=== PATIENT | female | born 1990 | race African-American/Black ===

== ENCOUNTER 2021-02-03 13:32 | Emergency (ER) | payer SELFPAY ==
[~2021-02-03] VITALS: Ht 170.1 cm; Wt 63.5 kg
[2021-02-03 14:20] LABS: CLARITY,URINE CLEAR; COLOR,URINE YELLOW; GLUCOSE, URINE (UA) NEGATIVE (NEGATIVE); KETONES,URINE NEGATIVE (NEGATIVE); LEUKOCYTE ESTERASE ,URINE 1+ (NEGATIVE); NITRITE,URINE POSITIVE (NEGATIVE); PROTEIN,URINE 3+ (NEGATIVE)
[2021-02-03 14:36] LABS: BILIRUBIN,URINE 1+ (NEGATIVE)
[2021-02-03 14:37] LABS: BACTERIA,URINE MODERATE /HPF; RBC,URINE TNTC /HPF; WBC,URINE 50-100 /HPF
--- NOTE | 2021-02-03 14:47 | ED GU-Female ---
General Chief Complaint: - Urinary Stated Complaint: PAINFUL URINATION, BLOODY URINATION Nursing Triage Note: Pt arrival at ER with complaint of Dysuria, Hematuria x3 days. Pt states that it hurts in her "crotch area" and feels better when there is pressure on it. Pain rated at a 8/10. Nursing Sepsis Screen: No Definite Risk Source: patient Exam Limitations: no limitations (RAD MORROW MED STUDENT) History of Present Illness Date Seen by Provider: Feb 03, 2021 Time Seen by Provider: 13:55 Initial Comments Pt is a 30yo female with no PMH who presents today with dysuria and hematuria. She states she has been straining to urinate for 3 days and has also noticed blood. LMP was about 2 weeks ago. she initially thought the blood was from her menstrual cycle being off but when she used a tampon there was no blood on it. Her and her girlfriend drank alcohol last night, and she woke up this morning with increased the constant urge to urinate, urinary frequency, increased pain and new pain in the suprapubic area. She reports holding pressure on her urethral area relieves the pain and that walking and pressure from her pant on her suprapubic area make it worse. Pain currently 8-9/10. Denies fever, chills, chest pain, SOB, n/v, discharge or abnormal smells. She did switch to using a ne w, scented body-wash recently, but denies any rashes or skin changes in her genital region. Does not think she is as she only sleeps with women, is in a relationship currently. Timing/Duration: this morning Severity/Quality: moderate Location: suprapubic, urethral Radiation: none Prior Genitourinary Problems: none Sexual [place] History: single partner Modifying Factors: Improves With Movement, Improves With Palpation, Improves With Urinating Associated Symptoms: dysuria, urinary frequency (RAD MORROW MED STUDENT) Allergies and Home Medications Allergies Coded Allergies: No Known Drug Allergies (Unverified , 02/03/21) Home Medications Cephalexin 500 Mg Tablet, 500 MG PO TID Prescribed by: CECE AYALA on 02/03/21 1510 Phenazopyridine HCl 200 Mg Tablet, 1 TAB PO TID PRN for PAIN-MILD (1-4) Prescribed by: CECE AYALA on 02/03/21 1510 Review of Systems Review of Systems Constitutional: No chills, No fever EENTM: no symptoms reported Respiratory: No cough, No short of breath Cardiovascular: No chest pain, No edema Gastrointestinal: abdominal pain (suprapubic); No constipation, No diarrhea, No nausea, No vomiting Genitourinary: denies discharge; dysuria, frequency, hematuria, pain, urgency Musculoskeletal: No back pain, No joint pain Skin: No change in color, No lesions, No rash Psychiatric/Neurological: No Symptoms Reported Endocrine: No Symptoms Reported Hematologic/Lymphatic: No Symptoms Reported (RAD MORROW MED STUDENT) Past Anlsfkp-Nojzyg-Mdqzkk Hx Patient Social History Alcohol Use: Regular Use Alcohol Beverage of Choice: Beer Smoking Status: Current Everyday Smoker Type Used: Cigarettes Recent Infectious Disease Expo: No Recent Hopitalizations: No (RAD MORROW MED STUDENT) Immunizations Up To Date Tetanus Booster (TDap): Less than 5yrs PED Vaccines UTD: No (RAD MORROW MED STUDENT) Seasonal Allergies Seasonal Allergies: No (RAD MORROW MED STUDENT) Past Medical History Surgeries: No Respiratory: No Cardiac: No Neurological: No Last Menstrual Period: Jan 19, 2021 Genitourinary: No Gastrointestinal: No Musculoskeletal: No Endocrine: No HEENT: No Cancer: No Psychosocial: No Integumentary: No Blood Disorders: No (RAD MORROW MED STUDENT) Physical Exam Vital Signs Vital Signs - First Documented 02/03/21 13:52 Temp 36.6 Pulse 90 Resp 18 B/P (MAP) 145/98 (114) Pulse Ox 98 O2 Delivery Room Air (CECE NUNEZ MD) Vital Signs Capillary Refill : Less Than 3 Seconds (RAD MORROW MED STUDENT) Height, Weight, BMI Height: '" Weight: lbs. oz. kg; 21.00 BMI Method: General Appearance: WD/WN, no apparent distress HEENT: PERRL/EOMI Neck: full range of motion, supple Cardiovascular: regular rate, rhythm, no edema, no murmur Respiratory: lungs clear, no respiratory distress Gastrointestinal: normal bowel sounds, soft, tenderness (suprapubic with deep palpation) Extremities: normal range of motion, non-tender, no pedal edema, no calf tenderness, normal capillary refill Neurologic/Psychiatric: no motor/sensory deficits, alert, normal mood/affect, oriented x 3 Skin: normal color, warm/dry (RAD MORROWMED STUDENT) Progress/Results/Core Measures Suspected Sepsis Recent Fever Within 48 Hours: No Infection Criteria Present: None New/Unexplained Altered Menta: No Sepsis Screen: No Definite Risk SIRS Temperature: Pulse: 90 Respiratory Rate: 18 Blood Pressure 145 /98 Mean: 114 (RAD MORROW MED STUDENT) Results/Orders Lab Results Laboratory Tests Test 02/03/21 14:05 Range/Units Urine Color YELLOW Urine Clarity CLEAR Urine pH 6.0 5-9 Urine Specific [place] >=1.030 1.016-1.022 Urine Protein 3+ H NEGATIVE Urine Glucose (UA) NEGATIVE NEGATIVE Urine Ketones NEGATIVE NEGATIVE Urine Nitrite POSITIVE H NEGATIVE Urine Bilirubin 1+ H NEGATIVE Urine Urobilinogen 1.0 < = 1.0 MG/DL Urine Leukocyte Esterase 1+ H NEGATIVE Urine RBC (Auto) 3+ H NEGATIVE Urine RBC TNTC H /HPF Urine WBC 50-100 H /HPF Urine Squamous Epithelial Cells 2-5 /HPF Urine Crystals NONE /LPF Urine Bacteria MODERATE H /HPF Urine Casts NONE /LPF Urine Mucus NEGATIVE /LPF Urine Culture Indicated YES (CECE NUNEZ MD) My Orders Orders - CECE NUNEZ MD Ceftriaxone For Im Use (Rocephin For Im (02/03/21 15:15) Lidocaine 1% Inj 20 Ml (Xylocaine 1% Inj (02/03/21 15:15) (CECE NUNEZ MD) Medications Given in ED Current Medications Medications Dose Ordered Sig/Kristi Route Start Time Stop Time Status Last Admin Dose Admin Ceftriaxone Sodium 1,000 mg ONCE ONCE IM 02/03/21 15:15 02/03/21 15:16 DC 02/03/21 15:14 1,000 MG Lidocaine HCl 2.1 ml ONCE ONCE INJ 02/03/21 15:15 02/03/21 15:16 DC 02/03/21 15:14 2.1 ML (CECE NUNEZ MD) Vital Signs/I&O 02/03/21 13:52 Temp 36.6 Pulse 90 Resp 18 B/P (MAP) 145/98 (114) Pulse Ox 98 O2 Delivery Room Air (CECE NUNEZ MD) Vital Signs/I&O Capillary Refill : Less Than 3 Seconds (RAD MORROW MED STUDENT) Blood Pressure Mean: 114 Departure Impression Primary Impression: Urinary tract infection Qualified Codes: N39.0 - Urinary tract infection, site not specified; R31.9 - Hematuria, unspecified Additional Impression: Bladder spasm Disposition: HOME, SELF-CARE Condition: Improved Departure-Patient Inst. Decision time for Depature: 15:00 (CECE NUNEZ MD) Referrals: NO,LOCAL PHYSICIAN (PCP/Family) Primary Care Physician Patient Instructions: Blood in the Urine (Hematuria) in Adults, Urinary Tract Infection, Adult (DC) Add. Discharge Instructions: Complete your antibiotic as prescribed. You may use Pyridium as prescribed to help numb the urinary tract. This medication may cause the urine to be a reddish or orange color. There was blood in your urine. This may be due to infection. However, blood in the urine may also be caused by serious conditions such as bladder or kidney cancer. You should follow-up with a primary care provider soon as possible and have a repeat urine study performed after you complete urinary tract infection treatment. Drink lots of clear liquids to help flush out your urinary tract. Call with questions or concerns. Return to the emergency room if you have worsening symptoms. All discharge instructions reviewed with patient and/or family. Voiced understanding. Scripts Cephalexin (Cephalexin) 500 Mg Tablet 500 MG PO TID, #20 TAB Prov: CECE NUNEZ MD 02/03/21 Phenazopyridine HCl (Pyridium) 200 Mg Tablet 1 TAB PO TID PRN for PAIN-MILD (1-4), #10 TAB Prov: CECE NUNEZ MD 02/03/21 Work/School Note: Work Release Form Date Seen in the Emergency Department: Feb 03, 2021 Return to Work: Feb 04, 2021 Restrictions: No Restrictions RAD MORROW MED STUDENT Feb 03, 2021 14:47 CECE NUNEZ MD Feb 03, 2021 15:10
[2021-02-03] MEDS ORDERED: PHEN-640 PO (15:10)
[2021-02-03] MEDS ORDERED: CEPH500T PO (15:10)
[2021-02-03] MEDS ORDERED: LIDOCAINE 1% INJ 20 ML 20 ML VIAL INJ ONE (15:15)
[2021-02-03] MEDS ORDERED: cefTRIAXone 1,000 MG/2.86 ml vial (IM ONLY) IM ONE (15:15)
[2021-02-03 15:24] VITALS: BP 142/101
== END 2021-02-03 15:24 | disposition home or self-care (01) ==
LOC: ER 13:35
DX: N39.0 Urinary tract infection, site not specified (principal); N32.89 Other specified disorders of bladder; I10 Essential (primary) hypertension; F17.210 Nicotine dependence, cigarettes, uncomplicated
CPT/HCPCS: 81000; 84703; 87077; 87088; 99284

== ENCOUNTER 2022-10-05 09:46 | Emergency (ER) | payer SELFPAY ==
[~2022-10-05] VITALS: Ht 167 cm; Wt 64.0 kg
[~2022-10-05 09:46] MED LIST: CEPH500T PO; PHEN-640 PO
--- NOTE | 2022-10-05 11:33 | ED Upper Extremity ---
General Chief Complaint: Trauma POV Arrival Activation Stated Complaint: LT ARM PAIN Nursing Triage Note: ARRIVED VIA AMB TO FAST TRACK. STATES SHE FELL YESTERDAY HURTING HER LEFT ARM/SHOULDER. NOTIFIED OF BUSY ER WITH POSSIBLE LONG WAIT TIME. (JEN BURGOS) History of Present Illness Date Seen by Provider: Oct 05, 2022 Time Seen by Provider: 11:15 Initial Comments 32 year old female reports losing her balance last night, falling to the ground and injuring her left shoulder/forearm. She reports prior left clavicle fracture, no other injuries to Left UE. She has not taken any pain medications and denies the need. Rates pain 05/01. Onset: yesterday Severity: moderate Pain/Injury Location: left shoulder, left forearm Method of Injury: fell (JEN BURGOS) Allergies and Home Medications Allergies Coded Allergies: No Known Drug Allergies (Unverified , 02/03/21) Patient Home Medication List Home Medication List Reviewed: Yes (JEN BURGOS) Cephalexin (Cephalexin) 500 Mg Tablet, 500 MG PO TID Prescribed by: CECE AYALA on 02/03/21 1510 Phenazopyridine HCl (Pyridium) 200 Mg Tablet, 1 TAB PO TID PRN for PAIN-MILD (1- 4) Prescribed by: CECE AYALA on 02/03/21 1510 Review of Systems Constitutional: no symptoms reported, see HPI : No (patient reports in relationship with female partner) Musculoskeletal: see HPI, joint pain (left shoulder and forearm), muscle pain (JEN BURGOS) All Other Systems Reviewed Negative Unless Noted: Yes (JEN BURGOS) Past Kdqzwjq-Rsibex-Rahedd Hx Patient Social History Tobacco Use?: No Substance use?: No Alcohol Use?: Yes Alcohol Frequency: Once in a while (JEN BURGOS) Immunizations Up To Date Tetanus Booster (TDap): Less than 5yrs PED Vaccines UTD: No (JEN BURGOS) Seasonal Allergies Seasonal Allergies: No (JEN BURGOS) Past Medical History Surgeries: No Respiratory: No Cardiac: No Neurological: No Genitourinary: No Gastrointestinal: No Musculoskeletal: No Endocrine: No HEENT: No Cancer: No Psychosocial: No Integumentary: No Blood Disorders: No (JEN BURGOS) Family Medical History Reviewed Nursing Family Hx (LORETTAJEN GARY) Physical Exam Vital Signs Vital Signs - First Documented 10/05/22 09:50 Temp 36.1 Pulse 91 Resp 16 B/P (MAP) 152/100 (117) Pulse Ox 100 O2 Delivery Room Air (CECE NUNEZ MD) Vital Signs Capillary Refill : Less Than 3 Seconds (JEN BURGOS COOKIE) Height, Weight, BMI Height: '" Weight: lbs. oz. kg; 22.00 BMI Method: General Appearance: WD/WN, no apparent distress Cardiovascular: normal peripheral pulses, regular rate, rhythm Respiratory: chest non-tender, lungs clear, normal breath sounds Shoulder: normal inspection, bone tenderness; No deformity; limited ROM, pain, soft tissue tenderness Elbow/Forearm: normal inspection, normal ROM, Left, soft tissue tenderness Neurologic/Psychiatric: no motor/sensory deficits, alert, normal mood/affect, oriented x 3 Skin: normal color, warm/dry (LORETTAJEN GARY) Progress/Results/Core Measures Results/Orders Blood Pressure Mean: 117 Diagnostic Imaging Diagonstic Imaging: Xray Plain Films/CT/US/NM/MRI: other (shoulder) Comments NAME: JOSE JACKSON [facility] REC#: [id number] PT STATUS: REG ER : 1990 PHYSICIAN: JEN BURGOS ADMIT DATE: 10/05/22/ER Draft Date of Exam:10/05/22 SHOULDER, LEFT, 3 VIEWS EXAMINATION: Shoulder radiographs, 3 views. COMPARISON: None. HISTORY: 32-year-old female, fall. Left shoulder pain. FINDINGS: Normal joint space. Negative for fracture. Unremarkable soft tissues. IMPRESSION: Unremarkable radiographs of the left shoulder. Dictated on workstation # [id number] Dict: 10/05/22 1147 Trans: 10/05/[address] [place] [address] [phone] Interpreted by: JOCELYN HALE MD Electronically signed by: Reviewed: Reviewed by Me Diagonstic Imaging: Xray Plain Films/CT/US/NM/MRI: forearm Comments NAME: JOSE JACKSON [facility] REC#: [id number] PT STATUS: REG ER : 1990 PHYSICIAN: JEN BURGOS ADMIT DATE: 10/05/22/ER Signed Date of Exam:10/05/22 FOREARM, LEFT, 2 VIEWS EXAMINATION: Left forearm radiograph. EXAM DATE: 10/05/2022 11:44 AM. COMPARISON: None available. HISTORY: Forearm pain. TECHNIQUE: 2 views. FINDINGS: There is no acute fracture, dislocation, or destructive osseous process. The joint spaces are normal. The soft tissues are normal. IMPRESSION: No acute osseous abnormality. Dictated by: Dictated on workstation # [id number] Dict: 10/05/22 1151 Trans: 10/05/22 1154 [phone] Interpreted by: KOJO STAUFFER DO Electronically signed by: KOJO STAUFFER DO 10/05/22 1154 Reviewed: Reviewed by Me (JEN BURGOS) Departure Impression Primary Impression: Fall Qualified Codes: W19.XXXA - Unspecified fall, initial encounter Additional Impression: Contusion of left arm Qualified Codes: S40.022A - Contusion of left upper arm, initial encounter Disposition: 01 HOME, SELF-CARE Condition: Improved Departure-Patient Inst. Decision time for Depature: 12:05 (JEN BURGOS) Referrals: [facility],LOCAL PHYSICIAN (PCP) Primary Care Physician Patient Instructions: Shoulder Pain (DC) Add. Discharge Instructions: Ice to left shoulder 20 minutes every 2 hours while awake. You may alternate between Tylenol 650 mg and ibuprofen 600 mg every 4 hours for pain. Activity as tolerated with left upper extremity. Establish care with a primary care provider. Return to the emergency department for new, urgent healthcare needs. All discharge instructions reviewed with patient and/or family. Voiced understanding. ATTENDING PHYSICIAN NOTE: I was physically present as attending physician in the emergency department during the care of this patient, but I was not directly involved in the decision making or delivery of care for this patient. (CECE NUNEZ MD) JEN BURGOS Oct 05, 2022 11:33 CECE NUNEZ MD Oct 06, 2022 08:52
--- NOTE | 2022-10-05 11:54 | Diagnostic Imaging Report ---
EXAMINATION: Left forearm radiograph. EXAM DATE: 10/05/2022 11:44 AM. COMPARISON: None available. HISTORY: Forearm pain. TECHNIQUE: 2 views. FINDINGS: There is no acute fracture, dislocation, or destructive osseous process. The joint spaces are normal. The soft tissues are normal. IMPRESSION: No acute osseous abnormality. Dictated by: Dictated on workstation # [id number]
--- NOTE | 2022-10-05 12:00 | Diagnostic Imaging Report ---
EXAMINATION: Shoulder radiographs, 3 views. COMPARISON: None. HISTORY: 32-year-old female, fall. Left shoulder pain. FINDINGS: Normal joint space. Negative for fracture. Unremarkable soft tissues. IMPRESSION: Unremarkable radiographs of the left shoulder. Dictated by: Dictated on workstation # [id number]
[2022-10-05 12:27] VITALS: BP 147/94
== END 2022-10-05 12:28 | disposition home or self-care (01) ==
LOC: EDUNIT# 09:46 → ER 09:50
DX: S50.12XA Contusion of left forearm, initial encounter (principal); Z28.310 Unvaccinated for COVID-19; W01.0XXA Fall on same level from slipping, tripping and stumbling without subsequent striking against object, initial encounter
CPT/HCPCS: 73030; 73090

== ENCOUNTER 2023-07-02 10:36 | Emergency (ER) | payer SELFPAY ==
[~2023-07-02] VITALS: Ht 167 cm; Wt 67.1 kg
--- NOTE | 2023-07-02 11:14 | ED Upper Extremity ---
General Chief Complaint: Upper Extremity Stated Complaint: INJ RIGHT ARM Nursing Triage Note: pt presents to ed via pov from home with complaints of r arm pain after injuring it monday when she slipped on a slick floor. Source: patient Exam Limitations: no limitations History of Present Illness Date Seen by Provider: Jul 02, 2023 Time Seen by Provider: 10:59 Initial Comments 33-year-old female presents to the ER with complaint of right upper arm and right shoulder pain after a fall which occurred on 06/30/2023. She states she landed on her right side. She was complaining of left hip/thigh pain, but states that this pain has dissipated. She also reports a sharp shooting pain in her chest that radiates to her right arm when she moves her right arm. Patient reports that she broke her collarbone on her right side many years ago. She has not taken any pain medications today. Allergies and Home Medications Allergies Coded Allergies: No Known Drug Allergies (Unverified , 02/03/21) Patient Home Medication List Home Medication List Reviewed: Yes Cephalexin (Cephalexin) 500 Mg Tablet, 500 MG PO TID Prescribed by: CECE AYALA on 02/03/21 1510 Phenazopyridine HCl (Pyridium) 200 Mg Tablet, 1 TAB PO TID PRN for PAIN-MILD (1- 4) Prescribed by: CECE AYALA on 02/03/21 1510 Review of Systems Constitutional: see HPI Musculoskeletal: see HPI Past Ozubsii-Cqqdtf-Jlwyto Hx Patient Social History Tobacco Use?: Yes Tobacco type used: Cigarettes Smoking Status: Current Someday Smoker Substance use?: No Alcohol Use?: Yes Alcohol Frequency: Once in a while Pt feels they are or have been: No Immunizations Up To Date Tetanus Booster (TDap): Less than 5yrs PED Vaccines UTD: No Seasonal Allergies Seasonal Allergies: No Past Medical History Surgeries: No Respiratory: No Cardiac: No Neurological: No Genitourinary: No Gastrointestinal: No Musculoskeletal: No Endocrine: No HEENT: No Cancer: No Psychosocial: No Integumentary: No Blood Disorders: No Physical Exam Vital Signs Vital Signs - First Documented 07/02/23 10:48 Temp 36.2 Pulse 94 Resp 16 B/P (MAP) 134/90 (105) Pulse Ox 100 Capillary Refill : Less Than 3 Seconds Height, Weight, BMI Height: '" Weight: lbs. oz. kg; 24.00 BMI Method: General Appearance: WD/WN, no apparent distress Neck: supple, normal inspection Cardiovascular: regular rate, rhythm Respiratory: lungs clear, normal breath sounds, no respiratory distress, no accessory muscle use, other (Chest is tender to palpation) Shoulder: no evidence of injury, bone tenderness, limited ROM, pain, soft tissue tenderness Elbow/Forearm: normal inspection, non-tender, no evidence of injury, normal ROM, Right Neurologic/Psychiatric: alert, normal mood/affect Skin: normal color, warm/dry Progress/Results/Core Measures Results/Orders My Orders Orders - JONNY WILLOUGHBY APRN Shoulder, Right, 3 Views (07/02/23 11:07) Humerus, Right, 2 Views (07/02/23 11:07) Ibuprofen Tablet (Ibuprofen Tablet) (07/02/23 11:15) Medications Given in ED Current Medications Medications Dose Ordered Sig/Kristi Route Start Time Stop Time Status Last Admin Dose Admin Ibuprofen 800 mg ONCE ONCE PO 07/02/23 11:15 07/02/23 11:16 DC 07/02/23 11:23 800 MG Vital Signs/I&O 07/02/23 07/02/23 10:48 11:59 Temp 36.2 36.2 Pulse 94 94 Resp 16 16 B/P (MAP) 134/90 (105) 134/90 Pulse Ox 100 100 Blood Pressure Mean: 105 Progress Progress Note : Progress Note Patient seen and evaluated, resting comfortably in recliner, no acute distress. Based on exam and symptoms, x-ray of right shoulder and right humerus ordered. Ibuprofen ordered. Chest is tender to palpation, chest pain only occurs with movement of right arm, I do not think that chest pain is cardiac. Chest pain appears to be musculoskeletal. Consider cardiac work-up including EKG, tr oponin, chest x-ray, but deferred because pain is likely musculoskeletal. 1150 imaging reviewed. Shoulder x-ray shows no acute abnormality. Humerus x-ray shows no acute bony abnormality. Results discussed with patient. Patient instructed to follow-up with primary care provider. Discharge instructions and return precautions provided. Diagnostic Imaging Diagonstic Imaging: Xray Plain Films/CT/US/NM/MRI: other (shoulder) Comments [facility] [place] NAME: MATT JACKSON [facility] REC#: [id number] PT STATUS: [facility] ER : 1990 PHYSICIAN: JONNY WILLOUGHBY APRN ADMIT DATE: 07/02/23/ER Signed Date of Exam:07/02/23 SHOULDER, RIGHT, 3 VIEWS INDICATION: Right shoulder pain. COMPARISON: None. DISCUSSION: Three views of the right shoulder were obtained. No acute fracture, dislocation, or other osseous abnormality identified. No significant degenerative disease. Alignment is anatomic. Soft tissues are unremarkable. IMPRESSION: 1. Negative right shoulder. Dictated by: Dictated on workstation # [id number] Dict: 07/02/231119 Trans: 07/02/231412 NGUYEN [phone] Interpreted by: GRETCHEN ARANA MD Electronically signed by: GRETCHEN ARANA MD 07/02/23 1413 Diagonstic Imaging: Xray Plain Films/CT/US/NM/MRI: other (humerus) Comments [facility] [place] NAME: MATT JACKSON [facility] REC#: [id number] PT STATUS: [facility] ER : 1990 PHYSICIAN: JONNY WILLOUGHBY APRN ADMIT DATE: 07/02/23/ER Signed Date of Exam:07/02/23 HUMERUS, RIGHT, 2 VIEWS EXAMINATION: Right humerus radiograph, 2 views. COMPARISON: None. HISTORY: 33-year-old female, right humerus pain. Injury. FINDINGS: There is no identified acute fracture. There is no radiopaque foreign body. The acromio clavicular joint is normally aligned. IMPRESSION: 1. No acute bony abnormality of the right humerus. Dictated by: Dictated on workstation # [id number] Dict: 07/02/231119 Trans: 07/02/231131 NGUYEN [phone] Interpreted by: JOCELYN HALE MD Electronically signed by: JOCELYN HALE MD 07/02/23 1132 Departure Impression Primary Impression: Contusion of right arm Disposition: 01 HOME, SELF-CARE Condition: Stable Departure-Patient Inst. Decision time for Depature: 11:52 Referrals: NO,LOCAL PHYSICIAN (PCP/Family) Primary Care Physician Patient Instructions: Contusion (DC) Add. Discharge Instructions: You may take 800 mg of ibuprofen every 8 hours with food as needed for pain. You may also take 1000 mg of Tylenol every 8 hours as needed for pain. Apply ice for 20 minutes at a time several times a day. Follow-up with your primary care provider if symptoms persist. Return for any new, concerning, or worsening symptoms. All discharge instructions reviewed with patient and/or family. Voiced understanding. Work/School Note: Work Release Form Date Seen in the Emergency Department: Jul 02, 2023 Return to Work: Jul 03, 2023 Restrictions: No Restrictions Other Restrictions Listed Below: Matt villanueva on 06/30/23, was seen in ER on 07/02/23. JONNY WILLOUGHBY APRN Jul 02, 2023 11:14
[2023-07-02] MEDS ORDERED: IBUPROFEN 800 MG TABLET PO ONE (11:15)
--- NOTE | 2023-07-02 11:22 | Diagnostic Imaging Report ---
EXAMINATION: Right humerus radiograph, 2 views. COMPARISON: None. HISTORY: 33-year-old female, right humerus pain. Injury. FINDINGS: There is no identified acute fracture. There is no radiopaque foreign body. The acromio clavicular joint is normally aligned. IMPRESSION: 1. No acute bony abnormality of the right humerus. Dictated by: Dictated on workstation # [id number]
--- NOTE | 2023-07-02 11:22 | Diagnostic Imaging Report ---
INDICATION: Right shoulder pain. COMPARISON: None. DISCUSSION: Three views of the right shoulder were obtained. No acute fracture, dislocation, or other osseous abnormality identified. No significant degenerative disease. Alignment is anatomic. Soft tissues are unremarkable. IMPRESSION: 1. Negative right shoulder. Dictated by: Dictated on workstation # [id number]
[2023-07-02 11:59] VITALS: BP 134/90
== END 2023-07-02 11:56 | disposition home or self-care (01) ==
LOC: EDUNIT# 10:36 → ER 10:39
DX: S40.021A Contusion of right upper arm, initial encounter (principal); F17.210 Nicotine dependence, cigarettes, uncomplicated; W01.0XXA Fall on same level from slipping, tripping and stumbling without subsequent striking against object, initial encounter
CPT/HCPCS: 73030; 73060

== ENCOUNTER 2023-07-08 17:24 | Emergency (ER) | payer SELFPAY ==
[2023-07-08] MEDS ORDERED: ORPHENADRINE 60 MG/2 ML AMP (ED ONLY) IM ONE (17:45)
[2023-07-08] MEDS ORDERED: KETOROLAC INJ 30 MG/ML VIAL IM ONE (17:45)
--- NOTE | 2023-07-08 17:46 | ED Back Pain ---
General Chief Complaint: Back Problems Stated Complaint: LOW BACK PAIN Source of Information: Patient Exam Limitations: No Limitations History of Present Illness Date Seen by Provider: Jul 08, 2023 Time Seen by Provider: 17:43 Initial Comments Patient is a 33-year-old female who presents ED with low back pain. She has been having back pain over the past 2 months. This pain has increased over the past 2 days. Pain is described as sharp. Certain type of rotational movements specially when she gets out of bed she feels a sharp shooting pain that radiates up. She does have no severe pain into her lower extremities. She denies any trauma or falls. Pain worse with bending over picking something up. She denies chest pain, shortness of breath, nausea, vomiting, diarrhea, abdominal pain, fever, chills or drug use. She states 2 days ago when the pain increased she took Laverne and had improvement. She denies of any bruising or swelling. No pain with urination frequent urination, vaginal bleeding, vaginal discharge or concern for STD Allergies and Home Medications Allergies Coded Allergies: No Known Drug Allergies (Unverified , 02/03/21) Patient Home Medication List Home Medication List Reviewed: Yes Cephalexin (Cephalexin) 500 Mg Tablet, 500 MG PO TID Prescribed by: CECE AYALA on 02/03/21 1510 Cyclobenzaprine HCl (Cyclobenzaprine HCl) 10 Mg Tablet, 10 MG PO TID Prescribed by: SHERLYN EARL on 07/08/23 183 Naproxen (Naproxen) 500 Mg Tablet, 500 MG PO Q12H Prescribed by: SHERLYN EARL on 07/08/23 183 Phenazopyridine HCl (Pyridium) 200 Mg Tablet, 1 TAB PO TID PRN for PAIN-MILD (1- 4) Prescribed by: CECE AYALA on 02/03/21 1510 Review of Systems Constitutional: No chills, No diaphoresis, No fever, No malaise, No weakness EENTM: No ear pain, No blurred vision, No double vision Respiratory: No cough, No dyspnea on exertion Cardiovascular: No chest pain Gastrointestinal: No abdominal pain, No diarrhea, No nausea, No vomiting Genitourinary: No decreased output, No discharge, No dysuria, No frequency, No hematuria Musculoskeletal: back pain; No joint pain Skin: No change in color All Other Systems Reviewed Negative Unless Noted: Yes Past Erbbwaa-Htyver-Ooeezy Hx Patient Social History Tobacco Use?: Yes Smoking Status: Current Someday Smoker Substance use?: No Alcohol Use?: Yes Alcohol Frequency: Rarely Pt feels they are or have been: No Immunizations Up To Date Tetanus Booster (TDap): Less than 5yrs PED Vaccines UTD: No Seasonal Allergies Seasonal Allergies: No Past Medical History Surgeries: No Respiratory: No Cardiac: No Neurological: No Genitourinary: No Gastrointestinal: No Musculoskeletal: No Endocrine: No HEENT: No Cancer: No Psychosocial: No Integumentary: No Blood Disorders: No Physical Exam Vital Signs Vital Signs - First Documented 07/08/23 07/08/23 17:33 18:46 Temp 36.7 Pulse 90 Resp 18 B/P (MAP) 126/94 (105) Pulse Ox 98 O2 Delivery Room Air Capillary Refill : Height, Weight, BMI Height: '" Weight: lbs. oz. kg; 24.00 BMI Method: General Appearance: No Apparent Distress, WD/WN HEENT: PERRL/EOMI, TMs Normal, Normal ENT Inspection, Pharynx Normal Neck: Full Range of Motion, Normal Inspection, Non Tender, Supple Cardiovascular: Regular Rate, Rhythm, No Edema, No Gallop, No JVD Respiratory: Chest Non Tender, Lungs Clear, Normal Breath Sounds, No Accessory Muscle Use, No Respiratory Distress Gastrointestinal: Normal Bowel Sounds, No Organomegaly, No Pulsatile Mass, Non Tender, Soft Back: Vertebral Tenderness (Lumbar midline tenderness. Bilateral lumbar paraspinal muscle tenderness. Pain with flexion and rotational movement) Extremity: Normal Capillary Refill, Normal Inspection, Normal Range of Motion, Non Tender Neurologic/Psychiatric: Alert, Oriented x3, No Motor/Sensory Deficits, Normal Mood/Affect Skin: Normal Color, Warm/Dry Progress/Results/Core Measures Results/Orders Lab Results Laboratory Tests Test 07/08/23 17:50 Range/Units Urine Color YELLOW Urine Clarity CLEAR Urine pH 5.5 5-9 Urine Specific Totz 1.025 H 1.016-1.022 Urine Protein NEGATIVE NEGATIVE Urine Glucose (UA) NEGATIVE NEGATIVE Urine Ketones NEGATIVE NEGATIVE Urine Nitrite NEGATIVE NEGATIVE Urine Bilirubin NEGATIVE NEGATIVE Urine Urobilinogen 0.2 < = 1.0 MG/DL Urine Leukocyte Esterase NEGATIVE NEGATIVE Urine RBC (Auto) TRACE H NEGATIVE Urine RBC RARE /HPF Urine WBC NONE /HPF Urine Squamous Epithelial Cells RARE /HPF Urine Crystals NONE /LPF Urine Bacteria NEGATIVE /HPF Urine Casts NONE /LPF Urine Mucus NEGATIVE /LPF Urine Culture Indicated NO Urine Test NEGATIVE NEGATIVE My Orders Orders - VEGA FRANCO Ua Culture If Indicated (07/08/23 17:34) Hcg,Qualitative Urine (07/08/23 17:34) Ketorolac Injection (Ketorolac Injection (07/08/23 17:45) Orphenadrine Inj (Ed Only) (Orphenadrine (07/08/23 17:45) Medications Given in ED Current Medications Medications Dose Ordered Sig/Kristi Route Start Time Stop Time Status Last Admin Dose Admin Ketorolac Tromethamine 30 mg ONCE ONCE IM 07/08/23 17:45 07/08/23 17:46 DC 07/08/23 17:58 30 MG Orphenadrine Citrate 60 mg ONCE ONCE IM 07/08/23 17:45 07/08/23 17:46 DC 07/08/23 17:58 60 MG Vital Signs/I&O 07/08/23 07/08/23 17:33 18:46 Temp 36.7 36.7 Pulse 90 81 Resp 18 18 B/P (MAP) 126/94 (105) 127/86 Pulse Ox 98 99 O2 Delivery Room Air Departure Communication (PCP) Patient is a 33-year-old female with a history of back pain who presents ED with worsening pain over the past 2 days. This appears to be rotational. No specific urinary symptoms. No abdominal pain chest pain or shortness of breath. Denies any drug use fever or chills. Denies of any fall. Differential diagnosis low back muscle strain, nephrolithiasis, pyelonephritis, UTI, bulging disc. On exam she has tenderness throughout the lower lumbar spine. Lumbar midline tenderness with pain with movement. She has no bowel or urine incontinence or saddle paresthesia. No neurological red flag findings needing emergent imaging. She had no fall or concern for fracture. She did take Laverne 2 days ago with improvement of pain. Did add a urine due to location of pain. Urinalysis without evidence of infection or .'s trace red blood cells. Not concern for nephrolithiasis. This appears to be bilateral. Concern for more musculoskeletal. She received Toradol and Norflex with improvement of pain. Suggest more musculoskeletal. At this time recommend stretching, ice, heat and anti-inflammatories which was provided discharge. Would likely benefit with physical formal therapy. If any worsening pain or symptoms may need further evaluation with imaging as needed. If any worsening symptoms such as difficulty urinating, lower extremity weakness, bowel or urine incontinence to return back to ED. Impression Primary Impression: Back pain Disposition: HOME, SELF-CARE Condition: Stable Departure-Patient Inst. Decision time for Depature: 18:35 Referrals: [facility] [place] ADDIE,LOCAL PHYSICIAN (PCP) Primary Care Physician Patient Instructions: Back Muscle Strain (DC) Add. Discharge Instructions: Provided pain medication to take. May try heating pad. Stretching. Outpatient follow-up with primary care physician. All discharge instructions reviewed with patient and/or family. Voiced understanding. Scripts Cyclobenzaprine HCl (Cyclobenzaprine HCl) 10 Mg Tablet 10 MG PO TID for Muscle Spasms, #14 TAB Prov: VEGA FRANCO 07/08/23 Naproxen (Naproxen) 500 Mg Tablet 500 MG PO Q12H, #16 TAB Prov: VEGA FRANCO 07/08/23 Work/School Note: Work Release Form Date Seen in the Emergency Department: Jul 08, 2023 Return to Work: Jul 10, 2023 VEGA FRANCO Jul 08, 2023 17:46
[2023-07-08 18:17] LABS: BACTERIA,URINE NEGATIVE /HPF; BILIRUBIN,URINE NEGATIVE (NEGATIVE); CLARITY,URINE CLEAR; COLOR,URINE YELLOW; GLUCOSE, URINE (UA) NEGATIVE (NEGATIVE); KETONES,URINE NEGATIVE (NEGATIVE); LEUKOCYTE ESTERASE ,URINE NEGATIVE (NEGATIVE); NITRITE,URINE NEGATIVE (NEGATIVE); PH,URINE 5.5 (5-9); PROTEIN,URINE NEGATIVE (NEGATIVE); RBC,URINE RARE /HPF; SQUAMOUS EPITHELIAL CELL,UR RARE /HPF
[2023-07-08] MEDS ORDERED: NAPR-915 PO (18:36)
[2023-07-08] MEDS ORDERED: CYCL10TA25 PO (18:36)
[2023-07-08 18:46] VITALS: BP 127/86
== END 2023-07-08 18:47 | disposition home or self-care (01) ==
LOC: EDUNIT# 17:24 → ER 17:27
DX: M54.50 Low back pain, unspecified (principal); F17.200 Nicotine dependence, unspecified, uncomplicated
CPT/HCPCS: 81000; 84703; 99284